=== PATIENT | female | born 1965 | race Caucasian/White ===

== ENCOUNTER 2018-08-11 09:06 | Day surgery (SDC) | payer BC ==
[2018-08-10 14:14] VITALS: BMI 42.4
[2018-08-11 12:15] VITALS: TEMP 97.5
[2018-08-11 13:03] VITALS: BP 104/56; PULSE 72
== END 2018-08-11 13:02 | disposition home or self-care (01) ==
LOC: JASU-ENDO 09:06 → JOR 09:06 → JASU-ENDO 13:02
PROVIDERS: ATTEND Internal Medicine Gastroenterology
PROC: 0DJD8ZZ Inspection of Lower Intestinal Tract, Via Natural or Artificial Opening Endoscopic (ICD-10-PCS; principal; 2018-08-11 10:15)
DX: Z86.010 Personal history of colon polyps (principal); K57.30 Diverticulosis of large intestine without perforation or abscess without bleeding; K64.8 Other hemorrhoids
CPT/HCPCS: 84703

== ENCOUNTER 2019-11-13 17:33 | Emergency (ER) | payer BC ==
--- NOTE | 2019-11-13 17:50 | PDOC ---
History of Present Illness - General Chief Complaint: Back Pain Stated Complaint: BACK PAIN Time Seen by Provider: 11/13/19 17:49 History Source: Patient Exam Limitations: No Limitations - History of Present Illness Initial Comments: 54 y.o female with hx/o L3/L4 radiculopathy/sciatica presents to the ED with worsening back pain. She is regularly followed by pain management and received epidural injection 1 week ago with the effects wearing off 2 days ago. Today she was walking up the stairs and felt a sharp pain in her left buttock that radiated to the right hip, and is consistent with the radicular pain in the past. Reports "pins and needles" in left lower extremity. Denies fever, falls/trauma, IVDU hx, LE weakness, or urinary symptoms/incontinence/retention. PMH: as in HPI SH: see below Meds: cyclobenzaprine, ibuprofen Allergies: NKDA Tob/Etoh/Rec drugs: none PCP: Jaswinder OROZCO GENERAL/CONSTITUTIONAL: No fever or chills. No weakness. HEENT: No change in vision. CARDIOVASCULAR: No chest pain or shortness of breath. RESPIRATORY: No cough, wheezing, or hemoptysis. GASTROINTESTINAL: No nausea, vomiting, diarrhea, constipation. GENITOURINARY: No dysuria, frequency, or change in urination. MUSCULOSKELETAL: No joint or muscle swelling or pain. Low back pain. SKIN: No rash NEUROLOGIC: No headache, vertigo, loss of consciousness, or change in strength/sensation. ENDOCRINE: No increased thirst. No abnormal weight change HEMATOLOGIC/LYMPHATIC: No anemia, easy bleeding, or history of blood clots. ALLERGIC/IMMUNOLOGIC: No hives or skin allergy. PE GENERAL: Awake, alert, and fully oriented, in no acute distress HEAD: No signs of trauma, normocephalic, atraumatic EYES: PERRLA, EOMI, sclera anicteric, conjunctiva clear ENT: Auricles normal inspection, hearing grossly normal, nares patent, oropharynx clear without exudates. Moist mucosa NECK: Normal ROM, supple, no lymphadenopathy, JVD, or masses HEART: Regular rate and rhythm, normal S1 and S2, no murmurs, rubs or gallops, peripheral pulses normal and equal bilaterally. LUNGS: No distress, speaks full sentences, clear to auscultation bilaterally ABDOMEN: Soft, nontender, normoactive bowel sounds. No guarding, no rebound. No masses EXTREMITIES : Normal inspection, Normal range of motion, no edema. No clubbing or cyanosis. NEUROLOGICAL: Normal speech, no focal sensorimotor deficits in lower extremities, +straight leg test SKIN: Warm, Dry, normal turgor, no rashes or lesions noted; no signs of trauma along back Assessment and Plan 11/13/19 18:42 Past History - Medical History Allergies/Adverse Reactions: Allergies Allergy/AdvReac Type Severity Reaction Status Date / Time No Known Drug Allergies Allergy Verified 11/13/19 17:49 Home Medications: Ambulatory Orders Birthcontrol 1 cap PO DAILY 12/01/11 Cholecalciferol (Vitamin D3) [Vitamin D3] 1,000 unit PO DAILY 08/10/18 Multivitamin,Therapeutic [Oncovite] 1 each PO DAILY 08/10/18 Cyclobenzaprine HCl [Flexeril -] 10 mg PO TID #21 tablet 11/13/19 Oxycodone HCl 5 mg PO BID PRN #10 capsule MDD 2 caps 11/13/19 Anemia: No Asthma: No Cancer: No Cardiac Disorders: No CVA: No COPD: No CHF: No Dementia: No Diabetes: No GI Disorders: No Disorders: Yes (RECTAL ADENOMA) HTN: No Hypercholesterolemia: No (BORDERLINE - NO MEDS) Liver Disease: No Seizures: No Thyroid Disease: No - Surgical History Abdominal Surgery: No Appendectomy: No Cardiac Surgery: No Cholecystectomy: No Lung Surgery: No Neurologic Surgery: No Orthopedic Surgery: Yes (RIGHT KNEE ARTHROSCOPY 1994/ LEFT ANKLE ARTHROSCOPY 2001) - Psycho-Social/Smoking History Smoking History: Never smoked Have you smoked in the past 12 months: No Medical Decision Making - Medical Decision Making 54 y.o female with hx/o L3/L4 radiculopathy/sciatica presents to the ED with worsening left buttock and hip pain. She denied fever, IVDU hx, incontinence/retention, LE weakness different from baseline, recent trauma falls. Unlikely epidural abscess bc no fever, no tenderness to palpation of vertebrae, and no hx/o IVDU. Unlikely Cauda Equina syndrome bc she does not have incontinence/retention or LE weakness that's different from baseline. Her pain and paresthesias are consistent with history of radiculopathy with +straight leg test. She was given IM toradol, tylenol and a lidocaine patch, but reported mi nimal improvement. She was given 5mg valium and had some improvement of muscle spasms. The pain worsened again so she was given 5mg oxycodone. Patient was able to ambulate with cane. She does not require any further workup and is safe for discharge. Discharge - Discharge Information Problems reviewed: Yes Clinical Impression/Diagnosis: Sciatica Qualifiers: Laterality: left Qualified Code(s): M54.32 - Sciatica, left side Condition: Stable Disposition: HOME - Admission No - Additional Discharge Information Prescriptions: Cyclobenzaprine HCl [Flexeril -] 10 mg PO TID #21 tablet Oxycodone HCl 5 mg PO BID PRN #10 capsule MDD 2 caps PRN Reason: Pain - Follow up/Referral Referrals: Kay San MD [Primary Care Provider] - Ag Johnson MD, FAANS [Staff Physician] - - Patient Discharge Instructions Patient Printed Discharge Instructions: DI for Back Pain With Sciatica Additional Instructions: You came into the ED because of worsening low back, buttock and left hip pain that is consistent with your sciatica and herniated disc in the past. Since you did not have fever, changes to urination or bowel movements, or changes to leg weakness or numbness/tingling, you did not require any further workup during this time. We gave an injection of Toradol, Tylenol, lidocaine patch which helped minimally. You received Valium and Oxycodone which helped more with the pain. but you were able to walk better than prior to your ED visit. 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 Return to the ED if you have worsening weakness in your legs, worsening pins and needles, numbness/tingling, or develop fever. - Post Discharge Activity
[2019-11-13 17:51] VITALS: TEMP 97.9; BMI 42.3
[2019-11-13] MEDS ORDERED: LIDOCAINE 5% TOPICAL PATCH TP ONE (18:37)
[2019-11-13] MEDS ORDERED: KETOROLAC TROMETHAMINE 60 MG/2 ML VIAL IM ONE (18:37)
[2019-11-13] MEDS ORDERED: ACETAMINOPHEN 325 MG TABLET (FP) PO ONE (18:37)
[2019-11-13] MEDS ORDERED: ACETAMINOPHEN 325 MG TABLET (FP) ONE (18:44)
[2019-11-13] MEDS ORDERED: LIDOCAINE 5% TOPICAL PATCH ONE (18:45)
[2019-11-13] MEDS ORDERED: KETOROLAC TROMETHAMINE 60 MG/2 ML VIAL ONE (18:45)
--- NOTE | 2019-11-13 18:57 | PDOC ---
Documentation entered by Thony Dawkins SCRIBE, acting as scribe for Mo Lei MD. Mo Lei MD: This documentation has been prepared by the Juancho smith Nirvannie, SCRIBE, under my direction and personally reviewed by me in its entirety. I confirm that the documentation accurately reflects all work, treatment, procedures, and medical decision making performed by me. Attending Attestation - Resident Resident Name: Andrews Cervantes - ED Attending Attestation I have performed the following: I have examined & evaluated the patient, The case was reviewed & discussed with the resident, I agree w/resident's findings & plan, Exceptions are as noted - HPI HPI: 11/13/19 18:26 The patient is a 54 year old female with a significant past medical history of L3-L4 radiculopathy (chronic LE paresthesias, followed by pain management) who presents to the ED with 2 days of progressively worsening back pain. As per patient, she received an epidural last week which she believes wore off 2 days ago. She notes today while walking up the stairs she began to experience sharp pain to the buttocks radiating to the left hip similar to her chronic back pain. Patient took Cyclobenzaprine and Ibuprofen prior to her arrival without relief, prompting her arrival to the ED. She denies any new changes in strength or sensation to the back or lower extremities. She denies any recent trauma or falls. No incontinence of bowel or bladder, no saddle anesthesia. Allergies: NKDA Primary Care Physician: Dr. San - Physicial Exam PE: 11/13/19 18:58 See resident exam - Medical Decision Making 11/13/19 18:58 54 F with lumbar radiculopathy presenting with acute on chronic pain. No neuro deficits to suggest cauda equina/cord compression. - Toradol - Lidocaine patch - Reassess 11/13/19 20:15 Pt reassessed - now feels better, able to ambulate unassisted Will DC with pain management f/u and spine f/u. Pt is well appearing, with normal vitals. Clinically stable for DC at this time. I discussed the physical exam findings, ancillary test results and final diagnoses with the patient. I answered all of the patient's questions. The patient was satisfied with the care received and felt comfortable with the discharge plan and treatment plan. The patient agrees to follow up with the primary care physician within 24-72 hours. Please note this patient was evaluated during the COVID-19 crisis with the presidential [place] Act Declaration and the [place] governor executive order number 202. He/she was evaluated and clinical decisions were made relative to healthcare system resources as well as clinical picture during a pandemic crisis situation. Discharge - Discharge Information Problems reviewed: Yes Clinical Impression/Diagnosis: Sciatica Qualifiers: Laterality: left Qualified Code(s): M54.32 - Sciatica, left side Condition: Stable Disposition: HOME - Additional Discharge Information Prescriptions: Cyclobenzaprine HCl [Flexeril -] 10 mg PO TID #21 tablet Cyclobenzaprine HCl [Flexeril -] 10 mg PO TID #21 tablet Oxycodone HCl 5 mg PO BID PRN #10 capsule MDD 2 caps PRN Reason: Pain - Follow up/Referral Referrals: Ag Johnson MD, FAANS [Staff Physician] - Kay San MD [Primary Care Provider] - - Patient Discharge Instructions Patient Printed Discharge Instructions: DI for Back Pain With Sciatica Additional Instructions: You came into the ED because of worsening low back, buttock and left hip pain that is consistent with your sciatica and herniated disc in the past. Since you did not have fever, changes to urination or bowel movements, or changes to leg weakness or numbness/tingling, you did not require any further workup during this time. We gave an injection of Toradol, Tylenol, lidocaine patch which helped minimally. You received Valium and Oxycodone which helped more with the pain. but you were able to walk better than prior to your ED visit. It is recommended that you follow up with your rn pain management. Return to the ED if you have worsening weakness in your legs, worsening pins and needles, numbness/tingling, or develop fever. - Post Discharge Activity
[2019-11-13] MEDS ORDERED: diazePAM 5 MG TABLET PO ONE (19:39)
[2019-11-13] MEDS ORDERED: diazePAM 5 MG TABLET ONE (19:51)
[2019-11-13 19:58] VITALS: BP 129/75; PULSE 88
[2019-11-13] MEDS ORDERED: oxyCODONE HCL 5 MG TABLET PO ONE (20:33)
[2019-11-13] MEDS ORDERED: oxyCODONE HCL 5 MG TABLET ONE (20:53)
[2019-11-13] MEDS ORDERED: LIDOCAINE PATCH REMOVAL MC SCH (22:00)
== END 2019-11-13 22:08 | disposition home or self-care (01) ==
LOC: JER 17:33
PROC: 3E023GC Introduction of Other Therapeutic Substance into Muscle, Percutaneous Approach (ICD-10-PCS; principal; 2019-11-13)
DX: M54.32 Sciatica, left side (principal)
CPT/HCPCS: 99284-25